=== PATIENT | male | born 1965 | race Caucasian/White ===

== ENCOUNTER 2017-07-28 07:17 | Day surgery (SDC) | payer OTHER ==
[2017-07-28] VITALS (10 sets, daily range): BP systolic 112–126; BP diastolic 71–80
[~2017-07-28] VITALS: Ht 177.8 cm; Wt 90.7 kg
[~2017-07-28 07:17] MED LIST: LR 1000ml 1,000 ML IVLG SCH; fentaNYL 100 mcg/2 mL IV ONE
[2017-07-28] MEDS ORDERED: ePHEDrine 50mg/ml Inj ONE (07:18)
[2017-07-28] MEDS ORDERED: Propofol 200mg/20ml IV ONE (07:18)
[2017-07-28] MEDS ORDERED: Midazolam 2mg/2ml Inj ONE (07:18)
[2017-07-28] MEDS ORDERED: PROPECIA1 MG PO (07:47)
[2017-07-28] MEDS ORDERED: DIOVAN160 MG ORAL (07:47)
[2017-07-28] MEDS ORDERED: PRILOSEC OTC20 MG ORAL (07:47)
[2017-07-28] MEDS ORDERED: LR 1000ml ONE (08:00)
[2017-07-28] MEDS ORDERED: Lidocaine 1% MPF 10mg/ml 5ml ONE (08:00)
--- NOTE | 2017-07-28 08:12 | Short Stay Surgery H&P ---
History of Present Illness History of Present Illness Chief Complaint See typed H&P HPI Claudio Mahoney is a 52 year old male who was admitted on for Blood In Stool Patient History Allergies: Coded Allergies: No Known Allergies (Unverified , 07/27/17) Medication History Scheduled Finasteride (Propecia), 1 MG PO DA, (Reported) Omeprazole Magnesium (Prilosec Otc), 20 MG ORAL DAILY, (Reported) Valsartan (Diovan), 160 MG ORAL DAILY, (Reported) Physical Exam Vital Signs Last Vital Signs Date Time Temp Pulse Resp B/P (MAP) Pulse Ox O2 Delivery O2 Flow Rate FiO2 07/28/17 07:48 97.0 55 20 125/79 97 Room Air 97.0 Plan Attestation Are the patient's medical conditions optimized for surgery? Alok Ayala MD Jul 28, 2017 08:12
--- NOTE | 2017-07-28 08:12 | Pre-Procedure Note/Attestation ---
Pre-Procedure Note/Attestation Complete Prior to Procedure Planned Procedure: not applicable Procedure Narrative: EGD Colon Indications for Procedure Pre-Operative Diagnosis: Heme (+) Attestation I attest that I discussed the nature of the procedure; its benefits; risks and complications; and alternatives (and the risks and benefits of such alternatives ), prior to the procedure, with the patient (or the patient's legal health and safety representative). I attest that, if there was a reasonable possibility of needing a blood transfusion, the patient (or the patient's legal health and safety representative) was given the [facility] standardized written summary, pursuant to the Steven Molina Blood Safety Act ([place] Health and Safety Code # 1645, as amended). I attest that I re-evaluated the patient just prior to the surgery and that there has been no change in the patient's H&P, except as documented below: Alok Ayala MD Jul 28, 2017 08:12
[2017-07-28] MEDS ORDERED: LR 1000ml 1,000 ML IVLG SCH (08:37)
--- NOTE | 2017-07-28 08:37 | Anethesia Preoperative Eval ---
Anesthesia Pre-op PMH/ROS General Date of Evaluation: Jul 28, 2017 Time of Evaluation: 07:51 Anesthesiologist: ASA Score: ASA 2 Mallampati Score Class I : Soft palate, uvula, fauces, pillars visible Class II: Soft palate, uvula, fauces visible Class III: Soft palate, base of uvula visible Class IV: Only hard plate visible Mallampati Classification: Class II Surgeon: mary Diagnosis: rectal bleed Surgical Procedure: egd, colonoscopy Anesthesia History: none Family History: no anesthesia problems Allergies: Coded Allergies: No Known Allergies (Unverified , 07/27/17) Past Medical History Cardiovascular: Reports: HTN; Denies: CAD, [place], valve dz, arrhythmia, other Pulmonary: Denies: asthma, COPD, ELANA, other Gastrointestinal/Genitourinary: Reports: GERD; Denies: CRI, ESRD, other Neurologic/Psychiatric: Denies: dementia, CVA, depression/anxiety, TIA, other Endocrine: Denies: DM, hypothyroidism, steroids, other HEENT: Denies: cataract (L), cataract (R), glaucoma, [place] (L), [place] (R), other Hematology/Immune: Denies: anemia, DVT, bleeding disorder, other Musculoskeletal/Integumentary: Denies: OA, RA, DJD, DDD, edema, other Anesthesia Pre-op Phys. Exam Physician Exam Last Vital Signs Date Time Temp Pulse Resp B/P (MAP) Pulse Ox O2 Delivery O2 Flow Rate FiO2 07/28/17 07:48 97.0 55 20 125/79 97 Room Air 97.0 Constitutional: NAD Neurologic: CN 2-12 intact Cardiovascular: RRR Respiratory: CTA Gastrointestinal: S/NT/ND Airway Exam Mallampati Score: Class II MO: full ROM: full Teeth: other - veneers Dentures: upper, lower Anesthesia Pre-op A/P Risk Assessment & Plan Assessment: asa 2 Plan: mac Status Change Before Surgery: No Pre-Antibiotics Drug: none Stacey Garcia M.D. Jul 28, 2017 08:37
--- NOTE | 2017-07-28 08:41 | Immediate Post-Op Evaluation ---
Immediate Post-Op Evalulation Immediate Post-Op Evalulation Procedure: egd, colonoscopy Date of Evaluation: Jul 28, 2017 Time of Evaluation: 09:07 IV Fluids: lr 200ml Blood Products: 0 Estimated Blood Loss: 0 Urinary Output: 0 Blood Pressure Systolic: 112 Blood Pressure Diastolic: 71 Pulse Rate: 53 Respiratory Rate: 13 O2 Sat by Pulse Oximetry: 97 Temperature (Fahrenheit): 97 Pain Score (1-10): 0 Nausea: No Vomiting: No Complications none Patient Status: awake, patent, none Hydration Status: adequate Drug: none Stacey Garcia M.D. Jul 28, 2017 08:41
[2017-07-28] MEDS ORDERED: fentaNYL 100 mcg/2 mL IV PRN (08:45)
[2017-07-28] MEDS ORDERED: DiphenhydrAMINE 50mg/ml Inj IVP PRN (08:45)
--- NOTE | 2017-07-28 10:35 | 48 Hour Post Anesthesia Eval ---
Post Anesthesia Evaluation Procedure: egd, colonoscopy Date of Evaluation: Jul 28, 2017 Time of Evaluation: 10:25 Blood Pressure Systolic: 117 0: 75 Pulse Rate: 52 Respiratory Rate: 20 Temperature (Fahrenheit): 97.8 O2 Sat by Pulse Oximetry: 99 Airway: patent Nausea: No Vomiting: No Pain Intensity: 0 Hydration Status: adequate Mental Status/LOC: patient returned to baseline Post-Anesthesia Complications: none Follow-up care needed: ready to discharge Stacey Garcia M.D. Jul 28, 2017 10:35
--- NOTE | 2017-07-28 20:15 | Operative Note - Dictated ---
DATE OF OPERATION: 07/28/2017 PROCEDURE: Upper gastroendoscopy with biopsy as well as colonoscopy with biopsy, polypectomy, and injection. SURGEON: Alok Ayala M.D. ANESTHESIA: Please see the separate anesthesiologist notes for details. PRE-ENDOSCOPIC DIAGNOSIS: Heme-positive stools. POST-ENDOSCOPIC DIAGNOSES: 1. A 2 cm hiatal hernia. 2. Moderate left-sided diverticulosis as seen before. 3. Diminutive semi-pedunculated polyp in the distal ascending colon, status post snare polypectomy as described below. 4. Diminutive polyps in the sigmoid colon at 15 cm, status post biopsy removal. 5. Moderate internal hemorrhoids. 6. Melanosis coli. PROCEDURE IN DETAIL: The procedure, the risks, indications, alternatives, and possible complications were explained to the patient and informed consent was obtained. The patient was then sedated and a diagnostic upper endoscope was introduced into oropharynx and advanced to the duodenum without difficulty. The endoscope was then gradually withdrawn and mucosa examined carefully. Examination of the upper gastric mucosa revealed a 2 cm hiatal hernia. Biopsies of the antrum were sent to pathology for review. The endoscope was removed and the rectal exam was done. Then, the colonoscope was introduced in the rectum and advanced through the terminal ileum without difficulty. The terminal ileal mucosa was normal for about 10 cm of the length that was examined. In the distal ascending colon, there was a 6 mm semi-pedunculated polyp, which was injected with saline to raise it and subsequently was removed with a hot biopsy forceps. There was a small lip of polyp left and this was removed with the biopsy forceps afterwards. There was diffuse mild melanosis coli identified throughout the colon. In the left colon, there was a tattoo george in the proximal descending colon, which was faint. This was followed by moderate diverticulosis and this ended about 30 cm or so where a second tattoo george was seen. At 15 cm, there were three diminutive polyps next to each other, which were all removed with biopsy forceps. Retroflexed view of the rectum revealed moderate internal hemorrhoids. The colonoscope was removed and the patient was sent to recovery in good condition. COMPLICATIONS: None. ASSESSMENT: This examination was negative for any definitive sources for heme-positive stools, although the hemorrhoids may have resulted in a false positive evaluation. The patient was advised to do another stool occult blood in about two months or so. Biopsies will be evaluated. Given the polyps identified, the patient will be counseled accordingly. The patient should be on antireflux regimen since he has had a hiatal hernia. High-fiber diet should be encouraged. RECOMMENDATIONS: 1. High-fiber diet. 2. Outpatient followup. 3. Follow up biopsy results. 4. Repeat stool occult blood in about two months. 5. Consider small bowel evaluation. Alok Ayala M.D. DR: LINDA JOB#: [id number] CC:
== END 2017-07-28 10:25 | disposition home or self-care (01) ==
LOC: GAS 07:17
DX: K57.30 Diverticulosis of large intestine without perforation or abscess without bleeding (principal); K63.5 Polyp of colon; K44.9 Diaphragmatic hernia without obstruction or gangrene; K64.8 Other hemorrhoids; I10 Essential (primary) hypertension; K21.9 Gastro-esophageal reflux disease without esophagitis
CPT/HCPCS: 43239; 45380; J2250; J2704; J7120; 94003; 94150